=== PATIENT | female | born 1975 | race Caucasian/White ===

== ENCOUNTER 2016-11-22 05:08 | Inpatient (IN) | payer OTHER ==
[2016-11-22] MEDS ORDERED: Buffered Lidocaine 1% SYRIN* 3 ML/SYR SYRINGE INTRADERM ONE ×2 (06:00)
[2016-11-22] MEDS ORDERED: Famotidine IV* 10 MG/ML 2 ML (20 mg) IV ONE ×2 (06:00)
[2016-11-22 06:53] VITALS: BP 105/61
[2016-11-23] MEDS ORDERED: Ketorolac INJ* 30 MG/ML 1 ML VIAL IV PRN ×2 (08:50→09:26)
[2016-11-23] MEDS ORDERED: fentaNYL* 50 MCG/ML 2 ML VIAL (100 MCG VIAL) IV PRN (08:50)
[2016-11-23] MEDS ORDERED: diPHENhydraMINE IV* 50 MG/ML 1 ml VIAL (BENADRYL) IV PRN (09:26)
[2016-11-23] MEDS ORDERED: oxyCODONE/Acetamin 5/325 MG* TAB PO PRN (09:26)
[2016-11-23] MEDS ORDERED: Ondansetron INJ* 2 MG/ML VIAL IV PRN (09:26)
[2016-11-23] MEDS ORDERED: DiMENhydriNATE IV* 50 MG/ML VIAL IV PUSH PRN (09:26)
[2016-11-23] MEDS ORDERED: Naloxone* 0.4 MG/ML 1 ML VIAL IV PRN (09:26)
== END 2016-11-22 07:55 | disposition home or self-care (01) | DRG 765 ==
LOC: MCHOB 05:08 → UNDOADMIN 05:08 → MCHOB 06:12 → UNDOADMIN 06:12 → UNDODISIN 07:55
PROVIDERS: ADMIT Obstetrics & Gynecology; ATTEND Obstetrics & Gynecology
PROC: 10D00Z1 Extraction of Products of Conception, Low, Open Approach (ICD-10-PCS; principal; 2016-11-22)
PROC: 4A1HX4Z Monitoring of Products of Conception, Cardiac Electrical Activity, External Approach (ICD-10-PCS; 2016-11-22)
DX: O34.219 Maternal care for unspecified type scar from previous cesarean delivery (principal); O44.03 Complete placenta previa NOS or without hemorrhage, third trimester; Z3A.00 Weeks of gestation of pregnancy not specified; Z37.0 Single live birth; O09.523 Supervision of elderly multigravida, third trimester; Z91.013 Allergy to seafood

== ENCOUNTER 2016-11-23 06:10 | Inpatient (IN) | payer OTHER ==
[2016-11-23] MEDS ORDERED: ceFOXitin 2 GM IVPREMIX* 2 GM/50 ML BAG ONE (06:55)
[2016-11-23] MEDS ORDERED: [UNRECOGNIZED DRUG - OTHER] IV ONE (07:38)
[2016-11-23] MEDS ORDERED: Morphine PF AMP (0.5MG/ML)* 5 MG/10 ML AMP ONE (07:44)
[2016-11-23] MEDS ORDERED: Phenylephrine IV* 40 MCG/ML 10 ML SYRINGE ONE (07:46)
[2016-11-23] MEDS ORDERED: EPHEDrine (Pressors)* 50 MG/ML VIAL ONE (08:17)
[2016-11-23] MEDS ORDERED: OXYTOCIN* 10 UNITS/ML 1 ML VIAL ONE (08:19)
[2016-11-23] MEDS ORDERED: Oxytocin in LR* 20 UNITS/1,000 ML BAG IVPB ONE (09:13)
[2016-11-23] MEDS ORDERED: Glycerin ADULT SUPP PR PRN (09:21)
[2016-11-23] MEDS ORDERED: Dibucaine 1% 28.35 GM TUBE PR PRN (09:21)
[2016-11-23] MEDS ORDERED: Witch Hazel PAD* JAR TOPICAL PRN (09:21)
[2016-11-23] MEDS ORDERED: Acetaminophen TAB* 325 MG PO PRN (09:21)
[2016-11-23] MEDS ORDERED: Zolpidem TAB* 5 MG PO PRN (09:21)
[2016-11-23] MEDS ORDERED: Misoprostol TAB* 200 MCG PR ONE (09:23)
[2016-11-23] MEDS ORDERED: Oxytocin in LR* 20 UNITS/1,000 ML BAG IVPB SCH (10:00)
[2016-11-23] MEDS: Ibuprofen TAB* 600 MG PO PRN ×3 (11:39→23:31)
[2016-11-23] MEDS: Simethicone CHEW TAB* 80 MG PO SCH ×3 (11:39→20:48)
[2016-11-23] MEDS ORDERED: Ondansetron INJ* 2 MG/ML VIAL ONE (16:00)
[2016-11-23] MEDS ORDERED: oxyCODONE/Acetamin 5/325 MG* TAB PO PRN (16:01)
[2016-11-23] MEDS ORDERED: DiMENhydriNATE IV* 50 MG/ML VIAL IV PUSH PRN (16:01)
[2016-11-23] MEDS ORDERED: diPHENhydraMINE IV* 50 MG/ML 1 ml VIAL (BENADRYL) IV PRN (16:01)
[2016-11-23] MEDS ORDERED: Ondansetron INJ* 2 MG/ML VIAL IV PRN (16:01)
[2016-11-23] MEDS ORDERED: Naloxone* 0.4 MG/ML 1 ML VIAL IV PRN (16:01)
[2016-11-23] MEDS ORDERED: Ketorolac INJ* 30 MG/ML 1 ML VIAL IV PRN (16:01)
[2016-11-23] MEDS ORDERED: Ibuprofen TAB* 600 MG ONE (16:53)
[2016-11-23] MEDS: Docusate CAP* 100 MG PO SCH ×2 (16:58→20:47)
[2016-11-23] MEDS ORDERED: Scopolamine 1.5 mg* PATCH TRANSDERM SCH (17:00)
[2016-11-23] MEDS: oxyCODONE/Acetamin 5/325 MG* TAB PO PRN (20:48)
[2016-11-23] MEDS: Ferrous Gluconate TAB* 324 MG TAB PO SCH (21:33)
[2016-11-24] MEDS: oxyCODONE/Acetamin 5/325 MG* TAB PO PRN ×6 (02:13→22:48)
[2016-11-24] MEDS: Ibuprofen TAB* 600 MG PO PRN ×4 (05:31→23:30)
[2016-11-24 08:37] LABS: Hematocrit 34 % (35-47); Hemoglobin 11.5 g/dl (12.0-16.0); Mean Corpuscular HGB Conc 34 g/dl (31-36); Mean Corpuscular Hemoglobin 32 pg (27-31); Mean Corpuscular Volume 96 fL (80-97); Mean Platelet Volume 7 um3 (7.4-10.4); Red Blood Count 3.55 10^6/ul (4.0-5.4); Red Cell Distribution Width 13 % (10.5-15)
[2016-11-24 08:44] LABS: Comments Flag Yes
[2016-11-24] MEDS: Simethicone CHEW TAB* 80 MG PO SCH ×4 (08:54→21:30)
[2016-11-24] MEDS: Docusate CAP* 100 MG PO SCH ×3 (08:54→21:30)
[2016-11-24] MEDS: Ferrous Gluconate TAB* 324 MG TAB PO SCH ×2 (10:44→22:20)
[2016-11-25] MEDS: oxyCODONE/Acetamin 5/325 MG* TAB PO PRN ×6 (02:46→22:32)
[2016-11-25] MEDS: Ibuprofen TAB* 600 MG PO PRN ×4 (05:28→23:32)
[2016-11-25] MEDS: Simethicone CHEW TAB* 80 MG PO SCH ×4 (10:19→21:48)
[2016-11-25] MEDS: Docusate CAP* 100 MG PO SCH ×3 (10:19→21:48)
[2016-11-25] MEDS: Ferrous Gluconate TAB* 324 MG TAB PO SCH (13:08)
--- NOTE | 2016-11-26 00:38 | OP ---
DATE OF OPERATION: 11/23/16 - ROOM #[id number] DATE OF : 73 SURGEON: Dr. Kline. VP OF TECHNOLOGY: Helena Krause CNM PRE-OP DIAGNOSES: Previous section and placenta previa. POST-OP DIAGNOSES: Previous section and placenta previa. OPERATIVE PROCEDURE: Low transverse section. COMPLICATIONS: Include entrance into the placenta. FINDINGS: At the time of , she had a viable male, Apgars 3 and 8. Weight was 7 pounds 7 ounces. ESTIMATED BLOOD LOSS: 600 cc. DESCRIPTION OF PROCEDURE: The patient identified and procedure identified as a low transverse section. The patient was taken to the operating room and prepped and draped in the usual fashion in the left lateral recumbent position under spinal anesthesia. A Pfannenstiel incision was made through the old incision, carried down through fat, fascia, and peritoneum. A bladder flap was created via sharp dissection. At this time, the lower uterine segment was inspected with knowledge that the placenta was previa with much of the placenta anterior and an attempt was made to free things up enough to go as high as possible above the placenta with downward pressure in the lower uterine segment. An incision was made at the highest point that could be safely visualized and carried down until the uterus was entered. The incision was extended laterally using blunt dissection. At this point, portion of the upper placenta was visualized within incision. An attempt was made to deliver the baby through this, but was met with resistance. Hence, a vacuum was opened and applied to the baby's head and with vacuum assistance within short order, the baby was delivered. The cord was milked to provide baby with extra blood and cord was doubly clamped and cut and the infant was handed to the waiting roller engraver. Cord blood was obtained and segment of cord blood was obtained for pH. First the uterus was brought out through the incision. Uterus was extracted with good separation and no signs of . Good hemostasis was verified. The uterus was wiped out with a wet lap sponge and no remaining placenta could be palpated. The incision was then closed using 0 Polysorb in a running fashion. A second layer was used to imbricate the first layer. Hemostasis was achieved with 0 Polysorb [id number] sutures. The tubes and ovaries appeared normal. The uterus was placed back in the abdominal cavity. The peritoneum was then closed using 3-0 Polysorb in a running fashion. Good hemostasis in the subrectus layers. Fascia was closed using 0 Polysorb in a running fashion. Hemostasis was achieved in the subcu and the skin was closed with mayi as per the patient's request due to previous problems with Steri- Strips and suture. All sponge and instrument counts were correct and the patient returned to recovery room in stable condition. [id number]/[facility] #: [id number] [facility]ing
[2016-11-26] MEDS: oxyCODONE/Acetamin 5/325 MG* TAB PO PRN ×3 (02:46→11:20)
[2016-11-26] MEDS: Ibuprofen TAB* 600 MG PO PRN ×2 (05:36→11:20)
[2016-11-26 07:57] VITALS: BP 90/44
[2016-11-26] MEDS: Docusate CAP* 100 MG PO SCH (10:11)
[2016-11-26] MEDS: Simethicone CHEW TAB* 80 MG PO SCH (10:11)
[2016-11-26] MEDS ORDERED: Scopolomine PATCH Remove* 1 NOTE MISC PATCH OFF ONE (18:00)
== END 2016-11-26 12:39 | disposition home or self-care (01) | DRG 765 ==
LOC: MCHOB 06:10 → UNDODISIN 11:59 → MCHOB 14:37
PROVIDERS: ADMIT Obstetrics & Gynecology; ATTEND Obstetrics & Gynecology
PROC: 4A1HX4Z Monitoring of Products of Conception, Cardiac Electrical Activity, External Approach (ICD-10-PCS; principal; 2016-11-23)
PROC: 10D00Z1 Extraction of Products of Conception, Low, Open Approach (ICD-10-PCS; 2016-11-23)
DX: O34.211 Maternal care for low transverse scar from previous cesarean delivery (principal); O44.03 Complete placenta previa NOS or without hemorrhage, third trimester; Z3A.37 37 weeks gestation of pregnancy; Z37.0 Single live birth; O09.523 Supervision of elderly multigravida, third trimester; O66.5 Attempted application of vacuum extractor and forceps; Z88.8 Allergy status to other drugs, medicaments and biological substances; Z91.013 Allergy to seafood
CPT/HCPCS: 36415; 85025; 88307; A9270-GY; J0694; J2405; J2590